=== PATIENT | female | born 1960 | race Caucasian/White ===

== ENCOUNTER 2020-04-23 11:45 | Outpatient (CLI) | payer OTHER ==
[2020-04-23 12:54] LABS: FOLATE 13.36 ng/mL (5.90 - >24.8)
[2020-04-24 10:14] LABS: HOMOCYSTEINE 5.7 umol/L (<10.4)
== END 2020-04-23 11:46 | disposition home or self-care (01) ==
LOC: LAB 11:45
PROVIDERS: ATTEND Family Medicine
DX: G60.8 Other hereditary and idiopathic neuropathies (principal); R39.14 Feeling of incomplete bladder emptying; R14.0 Abdominal distension (gaseous); R19.7 Diarrhea, unspecified
CPT/HCPCS: 36415; 82607; 82746; 83090; 83921

== ENCOUNTER 2020-04-26 07:00 | Outpatient (CLI) | payer OTHER ==
[2020-04-26 16:18] LABS: BILIRUBIN,URINE NEGATIVE (NEGATIVE); GLUCOSE, URINE (UA) NEGATIVE (NEGATIVE); KETONES,URINE (UA) NEGATIVE (NEGATIVE); LEUKOCYTE ESTERASE, URINE NEGATIVE (NEGATIVE); NITRITE,URINE NEGATIVE (NEGATIVE); OCCULT BLOOD,URINE NEGATIVE (NEGATIVE); PROTEIN,URINE NEGATIVE (NEGATIVE); UROBILINOGEN,URINE 0.2 (NORMAL) E.U./dL (NORMAL)
[2020-04-26 16:42] LABS: CLARITY,URINE CLEAR (CLEAR)
== END 2020-04-26 23:59 | disposition home or self-care (01) ==
LOC: LAB.R 07:00
PROVIDERS: ATTEND Family Medicine
DX: G60.8 Other hereditary and idiopathic neuropathies (principal); R39.14 Feeling of incomplete bladder emptying; R14.0 Abdominal distension (gaseous); R19.7 Diarrhea, unspecified
CPT/HCPCS: 81003; 87086; 87177; 87209

== ENCOUNTER → 2020-04-29 | Outpatient (CLI) | payer OTHER | LOC: LAB 09:45 | PROVIDERS: ATTEND Family Medicine | DX: G60.8 Other hereditary and idiopathic neuropathies (principal); R39.14 Feeling of incomplete bladder emptying; R14.0 Abdominal distension (gaseous); R19.7 Diarrhea, unspecified | CPT/HCPCS: 87177; 87209 ==

== ENCOUNTER 2020-04-30 07:00 | Outpatient (CLI) | payer OTHER | END 2020-04-30 23:59 | disposition home or self-care (01) | LOC: LAB.R 07:00 | PROVIDERS: ATTEND Family Medicine | DX: R19.7 Diarrhea, unspecified (principal); R14.0 Abdominal distension (gaseous); R39.14 Feeling of incomplete bladder emptying; G60.8 Other hereditary and idiopathic neuropathies | CPT/HCPCS: 87177; 87209 ==

== ENCOUNTER 2021-01-27 13:28 | Emergency (ER) | payer OTHER ==
[2021-01-27 13:45] VITALS: BP 127/60
--- NOTE | 2021-01-27 13:52 | ED Physician Documentation ---
History of Present Illness - Stated complaint Stated Complaint: FELL- HIT HEAD - Chief complaint Chief Complaint: General - History obtained from History obtained from: Patient - Additonal information Additional information: At approximately 11 AM she was playing tennis and fell backwards and hit the back of her head. She saw stars but there was no loss of consciousness. She has a mild headache that was worse but is improving. She had mild nausea which is gone now. She is not anticoagulated. Review of Systems Constitutional: denies: Fever, Chills Eyes: denies: Loss of vision, Decreased vision, Photophobia Ears: denies: Loss of hearing, Ear pain Nose: denies: Rhinorrhea / runny nose, Congestion Throat: denies: Sore throat Cardiac: denies: Chest pain / pressure, Palpitations Respiratory: denies: Dyspnea, Cough PD PAST MEDICAL HISTORY - Allergies Allergies/Adverse Reactions: Allergies Allergy/AdvReac Type Severity Reaction Status Date / Time Sulfa (Sulfonamide Allergy Hives Verified 01/27/21 13:45 Antibiotics) PD ED PE NORMAL - Vitals Vital signs reviewed: Yes - General General: Alert and oriented X 3, No acute distress - HEENT HEENT: PERRL, EOMI, Other (facial bones NTTP) - Neck Neck: Supple, no meningeal sign, No bony TTP - Neuro Neuro: Alert and oriented X 3, vehicle assembler 2-12 intact, No motor deficit, No sensory deficit, Normal speech - Psych Psych: Normal mood, Normal affect Results - Vitals Vitals: Vital Signs - 24 hr 01/27/21 13:39 Temperature 36.3 C L Heart Rate 68 Respiratory 15 Rate Blood Pressure 127/60 O2 Saturation 100 Oxygen O2 Source Room air PD MEDICAL DECISION MAKING - ED course ED course: This is a 60-year-old woman with what seems like a low risk head injury, no severe symptoms or concerning physical findings. Already been almost 3 hours since the incident. A CT scan was offered but not necessarily recommended given the circumstances and she declined and agrees with watchful waiting at home. Departure - Departure Disposition: 01 Home, Self Care Clinical Impression: Head injury Qualifiers: Encounter type: initial encounter Qualified Code(s): S09.90XA - Unspecified injury of head, initial encounter Condition: Good Record reviewed to determine appropriate education?: Yes Instructions: ED Head Injury Closed
== END 2021-01-27 14:33 | disposition home or self-care (01) ==
LOC: ED 13:28
DX: S09.90XA Unspecified injury of head, initial encounter (principal); W01.0XXA Fall on same level from slipping, tripping and stumbling without subsequent striking against object, initial encounter; Y93.73 Activity, racquet and hand sports; Y92.312 Tennis court as the place of occurrence of the external cause
CPT/HCPCS: 99281; 99282